=== PATIENT | female | born 1970 | race Caucasian/White ===

== ENCOUNTER 2024-10-21 14:27 | Emergency (ER) | payer BC, MEDICAID ==
[~2024-10-21] VITALS: Ht 152.4 cm; Wt 85.0 kg
[~2024-10-21 14:27] MED LIST: ALBU6.7H14 INH; ALBU8.5H17 IH; ALBU8HFA PO; INHA1EAC68 MC; PRED10TA PO; PRED50TA PO
--- NOTE | 2024-10-21 14:40 | Physician Documentation ---
History of Present Illness ~ Chief Complaint: Shortness of Breath Stated Complaint: COPD COMPLICATIONS Time Seen by MD: 14:37 Primary Medical Doctor: [facility] HPI Patient is a 54-year-old female that presents to the emergency department for evaluation of increased shortness of breath x2 days. Patient reports that she has family visiting for in from out of town neuro new animals in the home she feels like she may be reacting to the animal dander. Also reports that she is currently out of her Symbicort inhaler which she normally uses daily. Present may be also contributing to her increased shortness of breath. Patient denies any other complaints at this time. Medication Reconciliation Allergies: Coded Allergies: No Known Allergies (Unverified , 10/21/24) Scheduled Albuterol Sulfate (Proventil Hfa), 2 PUFFS INH Q6H Scheduled PRN Albuterol Sulfate (Proair Hfa), 2 PUFFS IH Q4H PRN for SOB or wheezing albuterol inhaler (Pro-Air Inhaler), 1-2 PUFFS PO Q4H PRN for SOB or wheezing Discontinued Medications Prednisone (Prednisone), 1 TABLET PO DAILY Discontinued Reason: patient no longer taking Prednisone (Prednisone), 0 PO DAILY Discontinued Reason: patient no longer taking Durable Medical Equipment Inhaler, Assist Devices (E-Z Spacer), EACH [facility], (DME) Past Medical History Past Medical History: Asthma, COPD Past Surgical History: Alcohol Use: Heavy Drug Use: none Lives with: Family Lives In: Home Review of Systems ROS As stated above in the HPI, otherwise all systems are reviewed and negative. Physical Exam Vital Signs: Heart Rate: 80, Respiratory Rate: 16, BP: 173/110, Pulse Oximetry: 97, Weight: 85.000 Oxygen Flow Rate: 0 Physical Exam VITALS: Reviewed and as above. GENERAL: Alert, no apparent distress. HEENT: Normocephalic, atraumatic, PERRL, EOMI, dry mucosa, no erythema RESPIRATORY: Lungs clear, normal breath sounds, no respiratory distress. CHEST: No accessory muscle use, no retractions, the lower bases bilaterally no expiratory inspiratory wheezes noted, cough with inspiration mild congestion noted CV: Regular rate, rhythm, no edema, no murmur, No: JVD GI: Soft, non-tender, bowels sounds present, no rebound, guarding, or rigidity BACK: No CVA tenderness, or swelling MUSCULOSKELETAL No deformities, no edema SKIN: Warm and dry, no rash NEURO: Oriented x4, No motor or sensory deficit PSYCH: Normal mood and affect, no agitation Progress Results/Orders Results/Orders Orders - OPAL HERNANDEZ INSTRUCTIONAL INTERVENTIONIST Chest,Single View (10/21/24 14:51) Completed Orders - OPAL HERNANDEZ INSTRUCTIONAL INTERVENTIONIST Chest,Single View (10/21/24 14:51) Electrocardiogram (10/21/24 14:38) Dexamethasone Inj (Decadron 10mg/Ml Inj) (10/21/24 15:13) Vital Signs 10/21/24 10/21/24 10/21/24 10/21/24 14:32 14:52 14:54 14:58 Pulse 80 75 Resp 16 12 15 B/P (MAP) 173/110 162/103 (122) 145/95 (112) Pulse Ox 97 97 O2 Flow Rate 0 Medical Decision Making Findings This patient presents with symptoms most consistent with an acute COPD exacerbation. These constellation of symptoms are similar to prior exacerbations. The likely precipitant is weather change or air quality new animals in the home. Low suspicion for alternate etiologies such as pneumothorax, acute PE, pneumonia. Presentation not consistent with other acute cardiopulmonary causes including ACS, CHF. Patient given dexamethasone here with improvement of symptoms. And will be sent home with azithromycin burst pack and a refill for her Symbicort inhaler. Patient will follow up with her primary care provider. Patient will be provided with strict return precautions to the emergency department. Differential Dx:Considerations: Include: anxiety, asthma, bronchitis, cardiogenic shock, CHF, COPD, dysrhythmia, hypertension, accelerated, hypertension, essential, hypertension, malignant, hyperventilation, hyponatremia, myocardial infarction, panic attack, pneumonia, pneumonitis, pneumothorax, PSVT, pulmonary embolism, respiratory distress, respiratory failure, sinusitis, upper resp. infection, other Departure Impression: Primary Impression: Acute exacerbation of chronic obstructive airways disease Additional Impressions: Shortness of breath Chest tightness Discharge Instructions: COPD and Physical Activity, Asthma, Adult, [id number] Additional Instructions: This patient presents with symptoms most consistent with an acute COPD exacerbation. These constellation of symptoms are similar to prior exacerbations. The likely precipitant is weather change or air quality new animals in the home. Low suspicion for alternate etiologies such as pneumothorax, acute PE, pneumonia. Presentation not consistent with other acute cardiopulmonary causes including ACS, CHF. Patient given dexamethasone here with improvement of symptoms. And will be sent home with azithromycin burst pack and a refill for her Symbicort inhaler. Take your antibiotics per instructions. Please use your inhalers per instructions. Please follow up with your primary care provider. Please return to the emergency department if you have any worsening or recurrent symptoms or any additional concerning symptoms that we discussed here today increased shortness of breath chest tightness lightheadedness increased cough, congestion, fever or chills. Referrals: NO PRIMARY CARE PROVIDER (PCP) Prescriptions Azithromycin (Azithromycin) 250 Mg Tablet 1 TAB PO UD for 5 Days, #6 TAB 2 the first day followed by 1 for days 2-5 Prov: OPAL HERNANDEZ 10/21/24 Budesonide/Formoterol Fumarate (Symbicort 80-4.5 Mcg Inhaler) 80 Mcg-4.5 Mcg/Actuation Hfa.aer.ad 2 PUFFS INH Q12H for 30 Days, #1 INHALER 0 Refills Prov: OPAL HERNANDEZ 10/21/24 Education Educated: Patient Educated regarding: diagnosis, treatment, need for follow up Signature Scribe Signature: A Attestation: Scribed for Opal Hernandez by MONICA Lofton . 10/21/24 15:34 OPAL HERNANDEZ Oct 21, 2024 14:40
--- NOTE | 2024-10-21 14:41 | ELECTROCARDIOGRAPH REPORT ---
[facility] Test Date: 2024-10-21 Test Time: 14:39:32 Pat Name: DORYS MARTINEZ Department: EMERGENCY ROOM Room: Gender: F [employer] Service [employer] Director: GIRMA : [id number] Requested By: DELROY HERNANDEZ Order Number: [id number] Reading MD: Measurements Intervals [place]ridge Rate: 77 P: 60 CT: 153 QRS: 43 QRSD: 101 T: 27 QT: 412 QTc: 467 Interpretive Statements Sinus rhythm Borderline repolarization abnormality Please click the below link to view image of tracing.
--- NOTE | 2024-10-21 15:07 | RADIOLOGY REPORT ---
CHEST RADIOGRAPH Indication: CP Technique: Single frontal view of the chest was obtained Comparison: None FINDINGS: Lines and Tubes: None Lungs: No focal consolidation. Pleura: No effusion. No pneumothorax. Cardiomediastinal contours: Unremarkable Bones: No acute osseous abnormality. IMPRESSION: No acute cardiopulmonary disease.
[2024-10-21] MEDS ORDERED: AZIT250T82 PO (15:30)
[2024-10-21] MEDS ORDERED: BUDE10.22 INH (15:30)
[2024-10-21] MEDS: dexamethasone sod phosphate 10mg/ml inj IM STA (16:00)
[2024-10-21 16:04] VITALS: BP 154/97; PULSE 70; RESP 16; O2SAT 96
== END 2024-10-21 16:07 | disposition home or self-care (01) ==
LOC: ER 14:28
DX: J44.1 Chronic obstructive pulmonary disease with (acute) exacerbation (principal); Z79.899 Other long term (current) drug therapy
CPT/HCPCS: 71045; 93005; 96372; 99283; J1100